=== PATIENT | female | born 1965 | race African-American/Black ===

== ENCOUNTER 2017-04-13 07:32 | Day surgery (SDC) | payer OTHER ==
[~2017-04-13] VITALS: Ht 160 cm; Wt 84.3 kg
[2017-04-13] VITALS (14 sets, daily range): BP systolic 114–153; BP diastolic 55–70; PULSE 54–78; RESP 13–20; Ht 160 cm; Wt 84.3 kg
[~2017-04-13 07:32] MED LIST: CYCL-319 PO; HYDR-3498 PO; LIDOCAINE 2% (SDV) 5 ML INJ ONE; METO100T13 PO; SUCCINYLCHOLINE CHLORIDE 100 MG/5 ML SYG IV ONE; TRAM50TA2 PO
[2017-04-13] MEDS ORDERED: LISI10TA2 PO (09:40)
[2017-04-13] MEDS ORDERED: HYD25 PO (09:41)
[2017-04-13] MEDS ORDERED: COCAINE 4% 4 ML TOP ONE (10:54)
[2017-04-13] MEDS ORDERED: EPHEDrine SULFATE 50 MG/5 ML SYG IV PRN (11:00)
[2017-04-13] MEDS ORDERED: OXYCODONE/ACETAMINOPHEN (5/325) TAB PO PRN ×2 (11:00)
[2017-04-13] MEDS ORDERED: LABETALOL HCL 20MG INJ IV PRN (11:00)
[2017-04-13] MEDS ORDERED: hydrALAzine 20 MG INJ IV PRN (11:00)
[2017-04-13] MEDS ORDERED: DIPHENHYDRAMINE 50 MG INJ IV PRN (11:00)
[2017-04-13] MEDS ORDERED: LACTATED RINGER'S 1,000 ML IV SCH (11:00)
[2017-04-13] MEDS ORDERED: FENTAnyl 50 MCG/ML VIAL IV PRN ×3 (11:00)
[2017-04-13] MEDS ORDERED: ONDANSETRON 4 MG INJ IV PRN (11:00)
[2017-04-13] MEDS ORDERED: MEPERIDINE 25 MG INJ IV PRN (11:00)
[2017-04-13] MEDS ORDERED: FENTAnyl 50 MCG/ML VIAL ONE (11:04)
[2017-04-13] MEDS ORDERED: PROPOFOL 40 ML ONE (11:05)
--- NOTE | 2017-04-13 21:06 | RADRPT ---
Vent Rate: 59 bpm RR Interval: 0 msec SD Interval: 184 msec QRS Duration: 84 msec QT Interval: 410 msec QTC Interval: 405 msec P-R-T [place]: 52 - 15 - 0 degrees Sinus bradycardia with sinus arrhythmia Cannot rule out Anterior infarct , age undetermined T wave abnormality, consider inferolateral ischemia Abnormal ECG Electronically Signed By: Dereck Anguiano [id number]
--- NOTE | 2017-04-15 16:44 | OPR ---
DATE OF OPERATION: 04/13/2017 SURGEON: Edson Ortiz MD. PREOPERATIVE DIAGNOSIS: Chronic laryngitis. POSTOPERATIVE DIAGNOSIS: Chronic laryngitis. OPERATION PERFORMED: Direct microscopic laryngoscopy. OPERATIVE PROCEDURE: The patient brought to the operating room under parental sedation, general anesthesia by a mask and intravenous sedation, sterile sheets and drapes applied. The patient was paralyzed with succinylcholine. Direct laryngoscopy with microscopic examination [facility]. Base of tongue, vallecula, posterior cricoid region, false cords, ventricles were normal. Vocal cord mobility was assessed as normal after the succinylcholine effect wore off. There were no polyps or lesions seen. The subglottis was normal. Laryngoscope was removed. The patient was awakened in the operating room, and returned to recovery in excellent condition. Estimated blood loss nil. Complication none. Dictated By: Edson Ortiz MD /[email or web address] /Document#: [id number]
--- NOTE | 2017-04-17 12:40 | HP ---
DATE OF ADMISSION: 04/13/2017 HISTORY OF PRESENT ILLNESS: This is a 51-year-old female patient, seen in the office in December 2016 for a history of hoarseness and a lump in her throat. She also complains of a dry cough. She has been treated medically without relief of symptoms. A CT scan of the neck was performed, demonstrating possible vocal cord paralysis. The patient is admitted to the hospital for a direct laryngoscopy and possible biopsy. PAST MEDICAL HISTORY: High blood pressure. ALLERGIES: ALLERGIES NONE. MEDICATIONS: Hydrochlorothiazide, lisinopril, metoprolol. PRIOR SURGERY: Hysterectomy, , tubal ligation, knee surgery, clotting disorders. HABITS, FAMILY HISTORY AND REVIEW OF SYSTEMS: Negative. PHYSICAL EXAMINATION: GENERAL: Well-developed, well-nourished female patient in no acute distress. HEENT: Head is normocephalic. No masses or deformities. Ears and tympanic membranes are normal. Nose is clear. Oropharynx clear. NECK: No masses or adenopathy. CHEST: Clear to P and A. HEART: Regular sinus rhythm. No murmur. ABDOMEN: Soft. Bowel sounds normal. No masses or organomegaly. EXTREMITIES: Full range of motion without deformity. NEUROLOGIC: Physiologic. RECTAL AND PELVIC: Not done. IMPRESSION: Rule out vocal cord paralysis. RECOMMENDATIONS: Admit for surgery. Dictated By: Edson Ortiz MD /[email or web address] /Document#: [id number]
== END 2017-04-13 14:15 | disposition home or self-care (01) ==
LOC: SDS 07:32
PROVIDERS: ATTEND Otolaryngology Otolaryngology/Facial Plastic Surgery
DX: J37.0 Chronic laryngitis (principal)
CPT/HCPCS: 31526; 93005; J3010; J7999; Z7512; Z7610